=== PATIENT | female | born 1985 | race Caucasian/White ===

== ENCOUNTER 2016-05-30 11:46 | Inpatient (IN) | payer BC ==
[2016-05-30] MEDS ORDERED: NORCO 5/325 MG TAB PO PRN (12:42)
[2016-05-30] MEDS ORDERED: XANAX PO PRN (12:42)
[2016-05-30] MEDS ORDERED: PHENERGAN TAB 25 MG PO PRN (12:42)
[2016-05-30] MEDS ORDERED: PHARMACY CONSULT - VANCOMYCIN XX SCH (13:00)
[2016-05-30 13:39] LABS: BASOPHILS # (AUTO) 0.1 X10^3/uL (0.0-0.1); BASOPHILS % (AUTO) 0.7 % (0.2-1.0); EOSINOPHILS # (AUTO) 0.1 x10^3/uL (0.0-0.2); EOSINOPHILS % (AUTO) 0.9 % (0.9-2.9); HEMATOCRIT 42.1 % (36.0-47.0); HEMOGLOBIN 14.5 g/dL (12.0-16.0); LYMPHOCYTES # (AUTO) 1.5 X10^3/uL (1.3-2.9); LYMPHOCYTES % (AUTO) 13.9 % (21.0-51.0); MEAN CORPUSCULAR HEMOGLOBIN 28.6 pg (27.0-34.0); MEAN CORPUSCULAR HGB CONC 34.4 g/dL (33.0-35.0); MEAN CORPUSCULAR VOLUME 83.2 fL (80.0-100.0); MEAN PLATELET VOLUME 8.4 fL (7.4-11.0); MONOCYTES # (AUTO) 0.6 x10^3/uL (0.3-0.8); MONOCYTES % (AUTO) 5.6 % (0.0-13.0); NEUTROPHILS # (AUTO) 8.5 x10^3/uL (2.2-4.8); NEUTROPHILS % (AUTO) 78.9 % (42.0-75.0); PLATELET COUNT 207 X10^3/uL (150.0-450.0); RED BLOOD COUNT 5.06 X10^6/uL (3.5-5.4); RED CELL DISTRIBUTION WIDTH 13.4 % (11.6-16.5); WHITE BLOOD COUNT 10.8 X10^3/uL (3.6-10.0)
[2016-05-30] MEDS: NS 1000 ML 1,000 ML IV SCH ×2 (14:30→21:18)
[2016-05-30 14:39] LABS: SODIUM 142 mmol/L (136-145)
[2016-05-30 14:40] LABS: ALANINE AMINOTRANSFERASE 27 Units/L (12-78); ALBUMIN 3.7 g/dL (3.4-5.0); ALKALINE PHOSPHATASE 99 Units/L (46-116); ASPARTATE AMINO TRANSFERASE 20 Units/L (15-37); BLOOD UREA NITROGEN 12 mg/dL (7-18); CALCIUM 8.6 mg/dL (8.5-10.1); CARBON DIOXIDE 27.6 mmol/L (21-32); CHLORIDE 105 mmol/L (98-107); CREATININE 0.74 mg/dL (0.55-1.02); GLUCOSE 86 mg/dL (65-99); TOTAL PROTEIN 7.2 g/dL (6.4-8.2); eGFR BLACK RACES > 60 (>60); eGFR NON BLACK RACES > 60 (>60)
[2016-05-30] MEDS: MOTRIN TAB 600 MG PO PRN (15:34)
[2016-05-30] MEDS ORDERED: CATAPRES TAB 0.1 MG PO ONE (16:46)
--- NOTE | 2016-05-30 17:02 | DR.H&P ---
H&P - History & Physical for Day of: H&P Date: 05/30/16 - Chief Complaint Chief Complaint: right breast abscess - Allergies Allergies/Adverse Reactions: Allergies Allergy/AdvReac Type Severity Reaction Status Date / Time Penicillins Allergy Verified 03/28/16 13:59 - History of Present Illness History of Present Illness: PT IS 30 WF DIRECT ADMITTED FROM DR MADDOX OFFICE AFTER PRESENTING WITH CO RIGHT BREAST ABSCESS. PT WAS TREATED FOR SMALL POSSILBE ABSCESS FORMATION ONE WEEK AGO WITH BACTRIM DS. AT THE ONSET, PT HAS 1CM MILDLY CENTER ROUND MASS TO RIGHT INNER BREAST, WITHOUT REDNESS. AREA HAS ENLAGED TO 5CM WITH SEVERE TEDNERNESS AND LOCALIZED REDNESS. PT HAS PMH OF HTN. PLAN TO ADMIT WITH IV ATBX, PAIN CONTROL AND SURGICAL CONSULT FOR I & D. WILL COLLECT BLOOD AND WOUND CULTURES - Past Medical History Past Medical History: Hypertension - Past Surgical History Surgical History: - Family History Family Medical History: Diabetes Mellitus, Cancer, ID, Coronary Artery Disease, Hypertension - Social History Does patient currently use any type of tobacco product: No Have you used tobacco products in the last 12 months: No Type of Tobacco Use: None Does any household member use tobacco: No Alcohol Use: None Drug Use: None - Medications Home Medications: Amlodipine Besylate [NORVASC 5 MG *] 5 mg PO HS 05/30/16 [History Confirmed 06/12] - Review of Systems Constitutional: Fever, Chills, Sweats Eyes: No Symptoms Reported ENT: No Symptoms Reported Respiratory: No Symptoms Reported Gastrointestinal: No Symptoms Reported Genitourinary: No Symptoms Reported Musculoskeletal: No Symptoms Reported Skin: Other (ABSCESS TO RIGHT INNER BREAST) Neurological: No Symptoms Reported - Physical Exam Vital Signs: Temperature 97.6 F Pulse Rate [Right Brachial] 86 Pulse Rate [Left Brachial] 102 Respiratory Rate 18 Blood Pressure [Right Arm] 158/98 Blood Pressure [Left Arm] 169/100 Blood Pressure 156/96 O2 Sat by Pulse Oximetry 97 Oriented: Normal Eyes: Normal Ear: Normal Nose: Normal Throat: Normal Respiratory: Clear Throughout Cardiovascular: Normal : Normal Auscultation: Bowel Sounds: Normal Palpation: Normal Tenderness: Normal Skin: Red, Tender, Hot, Other (ABSCESS TO RIGHT INNER BREAST, 4.5- 5CM WIDTH, INCREASE WARMTH AND SEVERE TENDERNESS) Musculoskeletal: Normal Psychiatric: Normal Mood Description: Calm Speech Pattern: Clear, Appropriate - Assessment/Plan (1) Breast abscess Status: Acute Plan: ADMIT, IV ATBX THERAPY, BLOOD AND WOUND CULTURES. CONSULT DR WALDEN FOR I & D. ADMISSION LABS, CBC CMP, PAIN CONTROL (2) Breast pain, right Status: Acute Plan: PAIN CONTROL (3) Hypertension Qualifiers: Hypertension type: H Status: Acute Plan: RESUME HOME MEDS, MONITOR
[2016-05-30 17:07] VITALS: BMI 40.8
[2016-05-30] MEDS ORDERED: NORVASC TAB 5 MG PO SCH (21:00)
[2016-05-30] MEDS: VANCOMYCIN 1 GM PREMIX (ADDVANTAGE) 250 ML IV SCH (21:16)
[2016-05-31] MEDS: NS 1000 ML 1,000 ML IV SCH ×2 (03:00→14:13)
[2016-05-31 06:35] LABS: ALANINE AMINOTRANSFERASE 22 Units/L (12-78); ALBUMIN 3.2 g/dL (3.4-5.0); ALKALINE PHOSPHATASE 88 Units/L (46-116); ASPARTATE AMINO TRANSFERASE 14 Units/L (15-37); BASOPHILS % (AUTO) 0.4 % (0.2-1.0); BLOOD UREA NITROGEN 11 mg/dL (7-18); CALCIUM 8.1 mg/dL (8.5-10.1); CARBON DIOXIDE 26.7 mmol/L (21-32); CHLORIDE 106 mmol/L (98-107); COR CA(FOR HYPOALB) 8.7 mg/dL (8.5-10.1); CREATININE 0.64 mg/dL (0.55-1.02); EOSINOPHILS # (AUTO) 0.1 x10^3/uL (0.0-0.2); EOSINOPHILS % (AUTO) 1.2 % (0.9-2.9); GLUCOSE 101 mg/dL (65-99); HEMATOCRIT 40.6 % (36.0-47.0); HEMOGLOBIN 13.7 g/dL (12.0-16.0); LYMPHOCYTES # (AUTO) 1.9 X10^3/uL (1.3-2.9); LYMPHOCYTES % (AUTO) 21.3 % (21.0-51.0); MEAN CORPUSCULAR HEMOGLOBIN 28.2 pg (27.0-34.0); MEAN CORPUSCULAR HGB CONC 33.7 g/dL (33.0-35.0); MEAN CORPUSCULAR VOLUME 83.6 fL (80.0-100.0); MEAN PLATELET VOLUME 8.8 fL (7.4-11.0); MONOCYTES # (AUTO) 0.6 x10^3/uL (0.3-0.8); MONOCYTES % (AUTO) 6.8 % (0.0-13.0); NEUTROPHILS # (AUTO) 6.2 x10^3/uL (2.2-4.8); NEUTROPHILS % (AUTO) 70.3 % (42.0-75.0); PLATELET COUNT 190 X10^3/uL (150.0-450.0); RED BLOOD COUNT 4.85 X10^6/uL (3.5-5.4); RED CELL DISTRIBUTION WIDTH 13.1 % (11.6-16.5); SODIUM 142 mmol/L (136-145); TOTAL PROTEIN 6.5 g/dL (6.4-8.2); WHITE BLOOD COUNT 8.8 X10^3/uL (3.6-10.0); eGFR BLACK RACES > 60 (>60); eGFR NON BLACK RACES > 60 (>60)
--- NOTE | 2016-05-31 08:58 | US ---
HISTORY: Right breast abscess Study: Right breast ultrasound Comparison: None available Technique: Multiple grayscale and color flow Doppler images of the right breast were obtained in the 1 o'clock position correspond to the region of palpable abnormality. Findings: Within the 1 o'clock position of the right breast significant subcutaneous edema and skin thickening is noted with subjacent complex fluid collection. The fluid collection measures 4.3 x 2.1 cm in gre atest dimensions. The findings would be consistent with associated abscess. Continued clinical asses sment will be needed. IMPRESSION: Complex fluid collection in the 1 o'clock position consistent with the clinical history of abscess. Continued clinical evaluation will be needed. Reported By:
[2016-05-31] MEDS: VANCOMYCIN 1 GM PREMIX (ADDVANTAGE) 250 ML IV SCH (09:17)
[2016-05-31 09:19] LABS: SERUM PREGNANCY TEST, QUAL NEGATIVE <10 mIU/mL
[2016-05-31] MEDS ORDERED: ZOFRAN INJ 4 MG VIAL IVP PRN (10:43)
[2016-05-31] MEDS ORDERED: NS 1000 ML 1,000 ML ONE (11:36)
[2016-05-31] MEDS ORDERED: XYLOCAINE-MPF 1% ONE (11:37)
[2016-05-31] MEDS ORDERED: MARCAINE 0.25% WITH EPI IJ ONE (11:37)
[2016-05-31] MEDS ORDERED: FENTANYL INJ 100 mcg ONE (12:24)
[2016-05-31] MEDS ORDERED: NS IRRIGATION 1000 ML 1,000 ML IR ONE (12:58)
[2016-05-31] MEDS: MOTRIN TAB 600 MG PO PRN (13:27)
[2016-05-31 14:50] VITALS: BP 136/74
[2016-05-31] MEDS ORDERED: DIPRIVAN VIAL ONE (16:07)
[2016-05-31] MEDS ORDERED: VERSED ONE (16:07)
== END 2016-05-31 15:15 | disposition home or self-care (01) | DRG 585 ==
LOC: MED/SURG 11:46
PROVIDERS: ADMIT Internal Medicine; ATTEND Internal Medicine
PROC: 0H9T0ZZ Drainage of Right Breast, Open Approach (ICD-10-PCS; principal; 2016-05-31 12:00)
DX: N60.81 Other benign mammary dysplasias of right breast (principal); N64.4 Mastodynia; I10 Essential (primary) hypertension
CPT/HCPCS: 36415; 76642; 80053; 84703; 85025; 87040; 87070; 87075; 87205; A4222; S0020; J2250; J2405; J3010; J3370; J3490

== ENCOUNTER → 2016-06-20 | Outpatient (CLI) | payer BC ==
[2016-05-31 14:50] VITALS: BP 136/74
--- NOTE | 2016-06-20 13:08 | US ---
HISTORY: Right breast abscess near sternum, status post drainage Study: Targeted ultrasound Comparison: 05/30/2016 Findings: There is a smaller residual pocket of complex fluid in the medial right breast adjacent to the carrera um at approximately the 2 o'clock position measuring 2.2 x 0.5 by 2.5 cm. IMPRESSION: 1. There is a residual pocket of complex fluid in the medial right breast adjacent to the sternum at approximately the 2 o'clock position measuring 2.2 x 0.5 x 2.5 cm. Findings may represent a partial ly treated abscess. Reported By:
== END ==
LOC: RAD 12:31
PROVIDERS: ATTEND Internal Medicine
DX: N61.1 Abscess of the breast and nipple (principal)
CPT/HCPCS: 76642

== ENCOUNTER 2018-03-18 06:20 | Inpatient (IN) ==
[~2018-03-18 06:20] MED LIST: ANCEF 1 GRAM IV PREMIX* 1 G/50 ML BAG IV ONE; ANCEF VIAL 1 GRAM IVP ONE; D5 1/2 NS 1000 ML 1,000 ML IV SCH; LR 1000 ML IV 1,000 ML IV ONE
[2018-03-18] MEDS ORDERED: LR 1000 ML IV 1,000 ML IV ONE (06:46)
[2018-03-18] MEDS ORDERED: D5 1/2 NS 1L W PITOCIN 20 UNITS/L 20 UNITS/1,000 ML BAG IV ONE (06:47)
[2018-03-18] MEDS ORDERED: DILAUDID INJ ONE (06:47)
[2018-03-18] MEDS ORDERED: XYLOCAINE 1 % (PLAIN) ONE (06:47)
[2018-03-18] MEDS ORDERED: ANCEF 1 GRAM IV PREMIX* 1 G/50 ML BAG IV ONE (07:27)
[2018-03-18] MEDS ORDERED: REGLAN INJ 10 MG VIAL IVP PRN ×2 (09:08→09:16)
[2018-03-18] MEDS ORDERED: ZOFRAN INJ 4 MG VIAL IVP PRN ×2 (09:08→09:16)
[2018-03-18] MEDS ORDERED: PHENERGAN INJ 25 MG IVP PRN (09:08)
[2018-03-18] MEDS ORDERED: BENADRYL INJ 50 MG VIAL IVP PRN ×2 (09:08→09:16)
[2018-03-18] MEDS ORDERED: TORADOL 30 MG VIAL IVP PRN (09:16)
[2018-03-18] MEDS ORDERED: MYLICON TAB 80 MG CHEW PO PRN (09:16)
[2018-03-18] MEDS ORDERED: PERCOCET TAB 5/325 MG PO PRN ×2 (09:16→16:42)
[2018-03-18] MEDS ORDERED: NARCAN INJ IVP PRN (09:16)
[2018-03-18] MEDS ORDERED: ADACEL or BOOSTRIX TDaP VACCINE IM ONE (09:16)
[2018-03-18] MEDS ORDERED: DIPRIVAN VIAL ONE (09:23)
[2018-03-18] MEDS ORDERED: EPHEDRINE SULFATE INJ ONE (09:23)
[2018-03-18] MEDS ORDERED: ZOFRAN INJ 4 MG VIAL ONE (09:23)
[2018-03-18] MEDS ORDERED: D5 1/2 NS 1000 ML 1,000 ML with PITOCIN 20 UNITS IV SCH ×2 (10:00)
[2018-03-18] MEDS ORDERED: MOTRIN TAB 800 MG PO PRN (15:00)
[2018-03-18] MEDS: ZANTAC PO SCH (20:55)
[2018-03-18] MEDS: COLACE CAP 100 MG PO SCH (20:56)
[2018-03-18] MEDS: NORMODYNE TAB 200 MG PO SCH (21:09)
[2018-03-18] MEDS: BACTROBAN CREAM TOP SCH (21:10)
[2018-03-19] MEDS: BACTROBAN CREAM TOP SCH (05:49)
[2018-03-19] MEDS ORDERED: PRENATAL PLUS PO SCH (09:00)
[2018-03-19] MEDS: COLACE CAP 100 MG PO SCH (09:54)
[2018-03-19] MEDS: ZANTAC PO SCH (09:54)
[2018-03-19] MEDS: NORMODYNE TAB 200 MG PO SCH (09:54)
[2018-03-19 10:08] VITALS: BP 148/88
== END 2018-03-19 12:04 | disposition home or self-care (01) | DRG 785 ==
LOC: LD 06:20 → MED/SURG 09:16
PROVIDERS: ADMIT Specialist; ATTEND Specialist
DX: O10.013 Pre-existing essential hypertension complicating pregnancy, third trimester; O34.211 Maternal care for low transverse scar from previous cesarean delivery; Z37.0 Single live birth; Z23 Encounter for immunization; N85.8 Other specified noninflammatory disorders of uterus; Z3A.39 39 weeks gestation of pregnancy
CPT/HCPCS: 36415; 85014; 85018; 90715; A4216; A4222; S0197; J0690; J1170; J1885; J2405; J2704; J3490; J7120